=== PATIENT | female | born 1930 | race Caucasian/White ===

== ENCOUNTER 2016-02-24 13:39 | Outpatient (CLI) | payer MEDICARE ==
[~2016-02-24] VITALS: Ht 165.1 cm; Wt 59.1 kg
[~2016-02-24 13:39] MED LIST: BAYER CHEWABLE81 MG PO; BETIMOL15 ML EACH EYE; LISINOPRIL10 MG PO; NORVASC2.5 MG PO; OSTEO BI-FLEX1 EAC1 PO
--- NOTE | 2016-02-24 14:45 | NUR ---
PROLIA INJECTION TO LEFT ARM LOT#: [id number] EXP:06/09 SN:[id number]
[2016-02-24] MEDS ORDERED: VITAMIN D3400 UNI1 PO (14:50)
[2016-02-24 14:56] VITALS: BP 164/73; Ht 165.1 cm; Wt 59.1 kg
== END 2016-02-24 15:05 | disposition home or self-care (01) ==
LOC: D.OPS 13:39
DX: M81.0 Age-related osteoporosis without current pathological fracture (principal)